=== PATIENT | male | born 1955 | race Caucasian/White ===

== ENCOUNTER 2017-02-11 16:14 | Emergency (ER) | payer OTHER ==
[~2017-02-11 16:14] MED LIST: ACCUPRIL; ACCUPRIL10 MG PO; ALBUTEROL 0.5ML; ALBUTEROL 0.5ML INH; ALBUTEROL0.83 MG/ML IH; ALBUTEROL20 ml INH; ALLERGY RELIE15.8 ML; ASPIRIN81 M2 PO; ATORVASTATIN CA10 MG PO; CARAFATE1 G PO; CARAFATE1 GM PO; CLARITIN D; CLARITIN10 M2 PO; COLACE50 MG PO; DICYCLOMINE HCL20 MG PO; DULCOLAX5 MG PO; EZETIMIBE10 MG PO; FLEXERIL; FLEXERIL10 MG PO; GLIPIZIDE10 MG PO; GLIPIZIDE10 MG/BOTT PO; GLUCOPHAGE500 M1 PO; GLUCOPHAGE500 MG PO; GLUCOTROL XL; IBUPROFEN PO; IBUPROFEN800 MG; IBUPROFEN800 MG PO; LOPID600 MG; LORTAB 7.5-3251 EACH PO; METFORMIN HCL500 M1; MIRALAX17 G2 PO; MULTI VITAMIN1 EACH PO; NEURONTIN; NEURONTIN300 MG PO; NORCO 5MG-325MG PO; NYSTATIN100000 UN1; ONE-A-DAY MENO1 EACH; OXYCODONE-APAP1 EACH PO; PERCOCET5/325 PO; PRILOSEC2.5 MG; PRILOSEC20 M1 PO; PROTONIX PO; SENOKOT S1 TA1 PO; SYMBICORT INH; TIZANIDINE HCL4 M1 PO; ZOFRAN ODT PO; ZOFRAN ODT4 MG PO; ZOFRANODT PO
== END 2017-02-11 17:15 | disposition home or self-care (01) ==
LOC: SED 16:14
DX: I10 Essential (primary) hypertension (principal); F41.9 Anxiety disorder, unspecified; R07.89 Other chest pain; K21.9 Gastro-esophageal reflux disease without esophagitis; E11.9 Type 2 diabetes mellitus without complications; Z79.899 Other long term (current) drug therapy
CPT/HCPCS: 99283

== ENCOUNTER 2017-02-14 08:59 | Emergency (ER) | payer OTHER ==
--- NOTE | ~2017-02-14 | CT71 ---
[facility]. [facility] A Service of [facility] RADIOLOGY TEXT RESULTS PATIENT: NICK RICHARDS LOCATION: SED : 57 UNIT #: [id number] AGE: [address]: Angel Lopez MD SEX: M ORDER DR: [id number] [place] [id number] MR#: [id number] Acc #: [id number] NAME: NICK RICHARDS : 1955 SEX: M STUDY DATE/TIME: 02/14/2017 9:22 UNIT: SED ROOM: STUDY DESCRIPTION: CT Head Wo Contrast Attending Physician: Angel Lopez M.D. Ordering Physician: Angel Lopez M.D. Primary Care Physician: Peña Anderson M.D. MEDICAL IMAGING REPORT This report is preliminary unless electronic signature is present. EXAM CT head without contrast dated 02/14/2017. COMPARISON CT head without contrast dated 10/21/2015. HISTORY Mild stroke. Double vision, imbalance since [address] of the head was obtained without contrast in the axial plane as per the protocol. This CT exam was performed with one or more of the following radiation dose reduction techniques: automatic exposure control, adjustment of mA and/or kV according to patient size, and iterative reconstruction. FINDINGS No acute intracranial hemorrhage, space-occupying mass, mass effect, midline shift, or hydrocephalus. Mild hypodensity is noted in the periventricular white matter, particularly in bifrontal lobes. Nasal septum is deviated to the left. Paranasal sinuses demonstrate mild mucosal thickening in the periphery. Mastoid air cells, orbits with the ocular structures do not demonstrate any significant abnormality. Status post bilateral cataract surgery. IMPRESSION 1. No demonstrable acute intracranial abnormality. 2. Minimal hypodensity is noted in the periventricular white matter which could be related to minimal chronic microvascular ischemic change or migraine based on age and statistics. [facility] A Service [facility] RADIOLOGY TEXT RESULTS PATIENT: NICK RICHARDS LOCATION: SED : 57 UNIT #: [id number] AGE: [address]: Angel Lopez MD SEX: M ORDER DR: Dictated by... Erum Dixon M.D. THIS IS AN ELECTRONICALLY VERIFIED REPORT Erum Dixon M.D. at 02/15/2017 2:04 PM CPR/tmw TD: 02/14/2017 09:51 JOB #: [id number] MEDICAL IMAGING REPORT Page 1 of 1
--- NOTE | ~2017-02-14 | EKG ---
PATIENT: NICK RICHARDS UNIT #: [id number] Ventricular Rate: 93 BPM Atrial Rate: 93 BPM P-R Interval: 164 ms QRS Duration: 84 ms Q-T Interval: 350 ms QTC Calculation(Bezet): 435 ms P [place]: 48 degrees Calculated R [place]: 18 degrees Calculated T [place]: 52 degrees Diagnosis Line: Normal sinus rhythm Diagnosis Line: Normal ECG Diagnosis Line: When compared with ECG of 02-JUL-2016 17:07, Diagnosis Line: No significant change was found Diagnosis Line: Confirmed by MAI MACIAS MD ([id number]) on 02/17/2017 Diagnosis Line: 7:59:10 PM INTERPRETING MD: COLLEEN ECHOLS
[2017-02-14 09:21] LABS: BASOPHIL% 0.8 % (0-2.5); EOSINOPHIL# 0.1 X10e3 (0-0.7); EOSINOPHIL% 1.4 % (0.0-7.0); HEMATOCRIT 43.7 % (38.0-50.0); HEMOGLOBIN 15.3 gm/dL (13.0-16.0); LYMPHOCYTE# 1.4 X10e3 (1.0-3.5); LYMPHOCYTE% 22.7 % (17.0-45.0); MEAN CORPUSCULAR HEMOGLOBIN 34.3 PG (28-34); MEAN PLATELET VOLUME 7.7 FL (6.5-11.5); MONOCYTE# 0.5 X10e3 (0-1.0); MONOCYTE% 7.5 % (3.0-12.0); NEUTROPHIL# 4.1 X10e3 (1.5-7.1); NEUTROPHIL% 67.6 % (40-75); PLATELET COUNT 188 X10e3 (140-420); RED BLOOD COUNT 4.46 X10e (3.90-5.60); RED CELL DISTRIBUTION WIDTH 13.4 % (11.0-15.5)
[2017-02-14 09:27] LABS: POC - CKMB 1.1 ng/mL (0.0-7.9); POC - MYOGLOBIN 87.4 ng/mL (0.0-169.0); POC - TROPONIN <0.05 ng/mL (<=0.05)
[2017-02-14 09:32] LABS: DIFF IND NO
[2017-02-14 09:45] LABS: ALBUMIN SERUM 4.9 g/dL (3.5-5.0); BILIRUBIN, DIRECT 0.2 mg/dL (0.0-0.2); BILIRUBIN,INDIRECT 0.9 mg/dL (0.0-0.9); BILIRUBIN,TOTAL 1.1 mg/dL (0.2-2.0); BUN/CREATININE RATIO 18.75; CALCIUM SERUM 10.2 mg/dL (8.4-10.2); CREATININE SERUM 0.8 mg/dL (0.6-1.4); GLOM FILT RATE Estimated 97.1 mL/min (>60); POTASSIUM 4.1 mmol/L (3.5-5.1); PROTEIN TOTAL SERUM 8.6 g/dL (6.0-8.3)
== END 2017-02-14 12:17 | disposition home or self-care (01) ==
LOC: SED 08:59
PROVIDERS: Emergency Medicine
DX: H53.2 Diplopia (principal); I10 Essential (primary) hypertension; E11.65 Type 2 diabetes mellitus with hyperglycemia; K21.9 Gastro-esophageal reflux disease without esophagitis; Z79.899 Other long term (current) drug therapy; Z88.8 Allergy status to other drugs, medicaments and biological substances
CPT/HCPCS: 36415; 70450; 80048; 80076; 82553; 83874; 84484; 85025; 93005; 99284